=== PATIENT | female | born 1960 | race Caucasian/White ===

== ENCOUNTER 2020-08-04 08:04 | Emergency (ER) | payer MEDICAID, SELFPAY ==
[2020-08-04 08:05] VITALS: BP 141/91; PULSE 89; RESP 19; TEMP 36.4; O2SAT 100; BMI 29.0
--- NOTE | 2020-08-04 08:12 | HMH.EDFALL ---
ED Disposition Clinical Impression: Facial laceration Qualifiers: Encounter type: initial encounter Qualified Code(s): S01.81XA - Laceration without foreign body of other part of head, initial encounter Laceration, eyelid, right Qualifiers: Encounter type: initial encounter Qualified Code(s): S01.111A - Laceration without foreign body of right eyelid and periocular area, initial encounter Disposition: Home, Self-Care Condition on Discharge: Good Instructions: DI for Laceration Repair Referrals: Derrick Proctor MD [Staff Physician] - 3 days - Critical Care Critical Care Time: No Attestation: On , the high probability of a clinically significant, sudden or life threatening deterioration of the following system(s) required my full and direct attention, intervention and personal management. The time I documented below is in addition to time spent performing reported procedures but includes the following listed in this critical care notation. Medical Decision Making - Medical Records Medical records reviewed: Yes: I reviewed the patient's medical records. - Rashid Inquiry Pt receiving controlled substance: No Vital Signs: 08/04/20 08:05 Temperature 97.5 F L Temperature Source Oral Pulse Rate [Left Radial] 89 Respiratory Rate 19 Blood Pressure [Right Arm] 141/91 H Blood Pressure Mean [Right Arm] 107 Blood Pressure Source [Right Arm] Automatic Cuff Blood Pressure Position [Right Arm] Sitting 02 Sat by Pulse Oximetry 100 Oxygen Delivery Method Room Air Orders (Tests/Meds): ED MEDICATIONS Discontinued Medications Generic Name Dose Route Start Last Admin Trade Name Freq PRN Reason Stop Dose Admin Tetanus/Reduced Diphtheria/Acell Pertussis 0.5 ml 08/04/20 08:24 08/04/20 09:27 Adacel Tdap 0.5ml Syringe IM 08/04/20 08:25 0.5 ml .ONCE ONE Administration - CT Data CT Scan: Head, Other (face) Time Received: 09:[address] Reviewed: Yes: I have reviewed the patient's CT results Preliminary Findings: Normal/NAD Findings Narrative: scalp laceration Medical Decision Narrative: Patient with scalp laceration repaired by me in the emergency room. Tetanus updated. She has a negative CT head and face? No acute fractures or dislocations. She has no signs of retrobulbar hematoma, proptosis, hyphema, globe rupture. She does have a medial canthus laceration that I have discussed with local prefitter doors, Dr. Maxwell, who is happy to see her in the office to consider repair of this. She will be discharged to go directly there for further management. Fall HPI - General Stated Complaint: a/o fell on corner hit head Time Seen by Provider: 08/04/20 08:12 Mode of Arrival: Ambulatory Source of Information: Patient Limitations: No Limitations - History of Present Illness HPI Narrative: This is a 60-year-old female with no significant past medical history who presents to the emergency department for head injury that occurred just prior to arrival. Patient stood up quickly this morning and hit her head, face on a shelf. She has a large laceration with bleeding controlled on the forehead and also a laceration to the medial aspect of her eyelid at the medial canthus. She states the vision in her right eye is slightly blurry because of the bleeding from her eyelid laceration. She denies any loss of consciousness. No lateralizing motor or sensory changes. No neck, back, chest, abdominal pain. She does not take any blood thinners. - Related Data Home Medications Medication Instructions Recorded Confirmed Levothyroxine Sodium [Synthroid 112 mcg PO DAILY 08/04/20 08/04/20 112mcg (0.112mg) tablet] Allergies Allergy/AdvReac Type Severity Reaction Status Date / Time No Known Allergies Allergy Verified 08/04/20 08:25 [facility] History - Hepatitis A Screen Attestation statement:: This patient has been screened for Hepatitis A risk factors. I have reviewed the patient's past medi
--- NOTE | 2020-08-04 08:24 | CT_ITS ---
PROCEDURE: CT HEAD/BRAIN WO CON CLINICAL INDICATION: facial injury Head injury with headache/pain, contusion, abrasion or hematoma COMPARISON: No exams were available for comparison TECHNIQUE: Axial images obtained. All CT scans at the facility use one or more dose reduction, viz: automated exposure control, ma/kV adjustment per patient size (including targeted exams where dose is matched to indication, i.e. head), or iterative reconstruction technique. FINDINGS: No midline shift, mass effect, intracranial hemorrhage, hydrocephalus, or extra-axial fluid collection is evident. Laceration noted in the right frontal scalp region. No underlying calvarial fracture. The calvarium has an unremarkable appearance. No mastoid effusion. No sinus air-fluid level. IMPRESSION: Right frontal scalp laceration. No acute intracranial findings. Dictated by: Steven Son MD 08/04/2020 09:02 Steven Son MD in [place] 08/04/2020 09:02
--- NOTE | 2020-08-04 08:24 | CT_ITS ---
PROCEDURE: CT FACIAL BONES WO CON CLINICAL HISTORY: facial injury Laceration in the right periorbital region COMPARISON: No exams were available for comparison TECHNIQUE: Axial images obtained with sagittal and coronal reformats. All CT scans at the facility use one or more dose reduction, viz: automated exposure control, ma/kV adjustment per patient size (including targeted exams where dose is matched to indication, i.e. head), or iterative reconstruction technique. FINDINGS: Scalp laceration is present in the right supraorbital area. No acute fracture is evident.. The right orbit has an unremarkable appearance. No sinus air-fluid level. IMPRESSION: No acute fracture. Right frontal scalp laceration. Dictated by: Steven Son MD 08/04/2020 09:05 Steven Son MD in [facility] 08/04/2020 09:05
[2020-08-04 10:30] VITALS: BP 138/82; PULSE 78; RESP 18; TEMP 36.6; O2SAT 98
== END 2020-08-04 10:32 | disposition home or self-care (01) ==
PROVIDERS: Emergency Provider Emergency Medicine
DX: S01.81XA Laceration without foreign body of other part of head, initial encounter (principal); S01.111A Laceration without foreign body of right eyelid and periocular area, initial encounter; W01.10XA Fall on same level from slipping, tripping and stumbling with subsequent striking against unspecified object, initial encounter; Y92.019 Unspecified place in single-family (private) house as the place of occurrence of the external cause; Z23 Encounter for immunization
CPT/HCPCS: 12013; 70450; 70486; 90715; 99281

== ENCOUNTER 2020-08-11 10:08 | Emergency (ER) | payer MEDICAID, SELFPAY ==
--- NOTE | 2020-08-11 10:23 | PC.NURSE ---
Placed in traige for suture removal by nurse
[2020-08-11 10:25] VITALS: BP 0/0; PULSE 0; RESP 0; TEMP -17.7; TEMP 0
== END 2020-08-11 10:26 | disposition home or self-care (01) ==
LOC: ER 10:19
PROVIDERS: Emergency Provider Emergency Medicine
DX: S01.111D Laceration without foreign body of right eyelid and periocular area, subsequent encounter (principal)

== ENCOUNTER → 2020-12-21 13:17 | Outpatient (CLI) | payer OTHER, SELFPAY ==
--- NOTE | 2020-12-21 13:25 | CT_ITS ---
PROCEDURE: CT LUNG SCREENING CLINICAL INDICATION: H/O NICOTINE DEPENDENCE COMPARISON: CT CT CHEST LOW DOSE CANCER SCREENING from 12/27/2019 TECHNIQUE: The exam was performed on a GE Light Speed [address] scanner using 2.90 mGy CTDI. A low dose helical CT CHEST was performed on a multi-detector scanner. All CT scans at the facility use one or more dose reduction, viz: automated exposure control, ma/kV adjustment per patient size (including targeted exams where dose is matched to indication, i.e. head), or iterative reconstruction technique. The LDCT was performed in a facility that meets the criteria for the screening program. Data regarding this exam was submitted to ACR which is an approved registry. The order for this exam indicates that it came as a result of a lung cancer screening counseling shard decision-making visit that included all the elements required of such a visit including smoking cessation. The radiologist interpreting this exam meets the [facility] criteria for the LDCT lung cancer screening program. The exam is reported using the Lung-RADS classification scale and reported to the ACR registry. NOTE: This study was performed for the specific purposes of lung cancer screening and is not an alternative to diagnostic chest CT. RADIATION DOSE: CTDI vol(CT dose Index-volume) = 2.90mG DLP (Dose Length Product) = 116 mGcm FINDINGS: There scattered tiny nodular densities and several areas of mild architectural distortion consistent with smoking related change. There is a partly solid right middle lobe nodule visible on axial lung window images 46 through 48. There has been interval development of small satellite densities in increased prominence of the vertical component of this nodule since the prior study. May represent smoking related change, however it is consistent with a 4a nodule and 3 month low-dose chest CT without contrast is recommended. OTHER FINDINGS: Patient has had prior vertebroplasty at T12-L1 versus prominent calcification within the disc space. IMPRESSION: Lung-RADS Category 4A Suspicious Follow-up: 3 month low-dose chest CT Recommendations are per lung-RADS version 1.1 Dictated by: Mercedes Mcneil MD 12/24/2020 10:03 Mercedes Mcneil MD in [facility] 12/24/2020 10:03
== END ==
PROVIDERS: Visit Provider Internal Medicine Adolescent Medicine
DX: Z87.891 Personal history of nicotine dependence (principal); Z12.2 Encounter for screening for malignant neoplasm of respiratory organs
CPT/HCPCS: 71271

== ENCOUNTER → 2021-01-04 11:12 | Outpatient (CLI) | payer OTHER, SELFPAY ==
[2021-01-04 11:54] LABS: Basophils % 0.8 % (0.1-2.0); Eosinophils # 0.1 K/mm3 (0.0-0.4); Eosinophils % 1.5 % (0.1-12.0); Hematocrit 43.6 % (37.0-47.0); Hemoglobin 14.2 g/dL (12.2-16.2); Lymphocytes # 1.3 K/mm3 (0.7-4.5); Lymphocytes % 26.4 % (10-50); Mean Corpuscular HGB Conc 32.5 g/dL (31.8-35.4); Mean Corpuscular Hemoglobin 29.2 pg (27.0-31.2); Mean Corpuscular Volume 89.8 fl (81-99); Mean Platelet Volume 7.3 fl (7.4-10.4); Monocytes # 0.3 K/mm3 (0.1-1.0); Monocytes % 5.7 % (1.7-9.3); Neutrophils # 3.3 K/mm3 (1.8-7.8); Neutrophils % 65.6 % (37.0-80.0); Platelet Count 374 K/mm3 (142-424); Red Blood Count 4.86 M/mm3 (4.20-5.40); Red Cell Distribution Width 13.5 % (11.5-17.5); White Blood Count 5.1 K/mm3 (4.8-10.8)
[2021-01-04 12:36] LABS: Chloride 104 mmol/L (98-107); Potassium 5.1 mmoL/L (3.5-5.1); Sodium 138 mmol/L (136-145)
[2021-01-04 12:38] LABS: Alanine Aminotransferase 17 U/L (12-78); Anion Gap 11.1 mEq/L (5-15); Aspartate Amino Transferase 31 U/L (14-36); Blood Urea Nitrogen 17 mg/dl (7-17); Carbon Dioxide 28 mmol/L (22.0-30.0); Estimated Glomerular Filt Rate 57 ml/min (>60); GFR (African American) 69 ML/MIN (>60)
[2021-01-04 12:39] LABS: Albumin Level 4.9 g/dl (3.5-5.0); Albumin/Globulin Ratio 1.6 (1.1-1.8); Alkaline Phosphatase 49 U/L (38-126); Bilirubin,Total 0.6 mg/dl (0.2-1.3); Chol/HDL Ratio 3.5 (1-3.5); Cholesterol 237 mg/dl (140-200); Glucose 95 mg/dl (74-100); HDL Cholesterol 67 mg/dl (40-60); Total Protein,Serum 7.9 g/dl (6.3-8.2); Triglycerides 110 mg/dl (30-150); VLDL Cholesterol 22 mg/dL (0-40)
[2021-01-04 12:50] LABS: Direct LDL Cholesterol 133.85 mg/dL (100-129)
[2021-01-04 12:59] LABS: Triiodothryronine (T3) Uptake 29 % (23.5-40.5)
[2021-01-04 13:00] LABS: Free Thyroxine Index 3.7 ug/dL (5.93-13.13); T4 (Thyroxine) 12.7 ug/dl (5.53-11.0)
[2021-01-04 13:13] LABS: Thyroid Stimulating Hormone 2.08 uIU/mL (0.465-4.68)
[2021-01-06 14:52] LABS: AFP, Tumor Marker 3.6 ng/mL (0.0-8.3)
== END ==
PROVIDERS: Visit Provider Internal Medicine Adolescent Medicine
DX: Z00.00 Encounter for general adult medical examination without abnormal findings (principal); E03.9 Hypothyroidism, unspecified; Z86.19 Personal history of other infectious and parasitic diseases
CPT/HCPCS: 36415; 80053; 80061; 82105; 84436; 84443; 84479; 85025

== ENCOUNTER → 2021-01-11 12:42 | Outpatient (CLI) | payer OTHER, SELFPAY ==
--- NOTE | 2021-01-11 12:45 | FL_ITS ---
PROCEDURE: FL BARIUM SWALLOW MODIFIED CLINICAL INDICATION: DYSPHAGIA COMPARISON: No exams were available for comparison TECHNIQUE: Patient administered varying consistencies of barium contrast, while viewed in lateral position under real-time fluoroscopy with cine recording. FLUOROSCOPY TIME: The study was performed in conjunction with speech pathologist. Please see that report & recommendations. FINDINGS: Patient was given varying consistencies of barium.. No evidence to be penetration or tracheal aspiration. IMPRESSION: Unremarkable modified barium swallow. Please see speech pathologist report and recommendations. Dictated by: Steven Son MD 02/27/2021 19:02 Steven Son MD in [facility] 02/27/2021 19:02
--- NOTE | 2021-01-11 12:46 | CT_ITS ---
PROCEDURE: CT CHEST WO/W CON CLINCAL INDICATION: PULLMONARY NODULE COMPARISON: CT CT THORAX W/O CONTRAST from 12/20/[address] CHEST LOW DOSE CANCER SCREENING from 12/27/[address] LUNG SCREENING from 12/21/2020 TECHNIQUE: IV Contrast: 75ml Isovue 370 Axial images obtained with sagittal and coronal reformats. All CT scans at the facility use one or more dose reduction, viz: automated exposure control, ma/kV adjustment per patient size (including targeted exams where dose is matched to indication, i.e. head), or iterative reconstruction technique. FINDINGS: HEART AND MEDIASTINAL STRUCTURES: Unremarkable. LUNGS AND PLEURAL SPACES: COPD changes. There is a chronic parenchymal opacity in the right middle lobe laterally which is not significantly changed. Main component at this area measures approximately 6 3 mm with a smaller lateral area of nodularity 3 mm and 2 mm. 5 mm noncalcified nodules present in the right lower lobe posteriorly unchanged. 5 mm right upper lobe nodule 20 is unchanged. There is a 6 x 3 mm nodule in the left lower lobe medially which is stable image 70. No effusions or infiltrates. BONY STRUCTURES: There is a small sclerotic focus in the right 8th rib laterally and may be due to a bone island.. Calcification noted within the disc centrally at T12-L1. UPPER ABDOMEN: Unremarkable. ADDITIONAL FINDINGS: No other significant abnormalities. IMPRESSION: Overall stable CT appearance of the chest. Multiple small pulmonary nodules are present. The nodular density in the right middle lobe is unchanged. Six-month follow-up recommended. Dictated by: Steven Son MD 01/13/2021 12:09 Steven Son MD in [place] 01/13/2021 12:09
--- NOTE | 2021-01-11 13:44 | HMH.SLMBS2 ---
Speech & Language Evaluation Speech/Language Mod Barium Swallow Start: 01/11/21 13:37 Freq: once Status: Complete Protocol: Document 01/11/21 13:37 LISBET (Rec: 01/11/21 13:44 LISBET [id number]) General Information General Current Food Consistancy Regular,Thin Liquids Dentition Good Dentition Oxygen Status Room Air Facial Symmetry Symmetrical Patient Orientation Person,Place,Time,Situation Ability to Follow Directions Excellent Communication Ability No Impairment MBS Recommendations Diet Dietary Recommendations Regular,Thin Liquids Mod Barium Swallow Impressions Summary and Impressions Oral Phase Impression No Impairment (WFL) Oral Phase Summary Ms. Benitez was given the following consistencies: thins via straw and open cup, nectar, honey, pudding, mechanical soft, regular, mixed, and pill with thin wash . No impairments noted in the oral phase of swallowing. Pharyngeal Phase Impression No Impairment (WFL) Pharyngeal Phase Summary No overt signs/symptoms of dysphagia noted. She did report that when she drinks her protein shakes or a milkshake consistency that is extremely cold, she does have difficulty with pooling in the back of her throat. Speech/Language MBS Assessment/Goals/Plan Assessment Date of Evaluation: 01/11/21 Evaluation Type Initial Certification Assessment/Problems Dysphagia Does Patient Qualify for Service No Qualify/Failure Comment No s/s of dysphagia noted in the evaluation Plan Pt/Guardian verbally ack understanding Yes of dx/prognosis/goals G -code Required No Mod Barium Swallow Setup Exam Setup Radiologist Steven Son Level of Consciousness Awake,Alert,Appropriate, Follows Commands Position (degrees) 90 Mod Barium Swallow-Lat View Textures Lateral View Food Presentation Thin Liquid via Cup,Thin Liquid via Straw,[place] Liquid via Cup,Honey Liquid via Cup, Ground Food- Regular,Barium Tablet,Regular Food,Pudding, Mixed Oral Phase Labial Closure No Impairment (WFL) Bolus Formation Pooling L/R No Impairment (WFL) Bolus Formation under T
== END ==
PROVIDERS: PCP Nurse Practitioner Family; Visit Provider Internal Medicine Adolescent Medicine
DX: R13.14 Dysphagia, pharyngoesophageal phase (principal); R91.1 Solitary pulmonary nodule
CPT/HCPCS: 70371; 71270; 92611; Q9967

== ENCOUNTER → 2021-04-14 13:16 | Outpatient (CLI) | payer OTHER, SELFPAY ==
--- NOTE | 2021-04-14 13:24 | XR_ITS ---
PROCEDURE: XR FOOT LT MIN 3V CLINICAL INDICATION: LT FOOT PAIN COMPARISON: No exams were available for comparison FINDINGS: No fracture or dislocation. No lytic or blastic change. There is normal mineralization. Minimal osteoarthritic change 1st MTP joint Other findings:None. IMPRESSION: Minimal osteoarthritic change 1st MTP joint otherwise negative Dictated by: Steven Son MD 04/14/2021 13:41 Steven Son MD in [place] 04/14/2021 13:41
[2021-04-14 13:46] LABS: Basophils # 0.1 K/mm3 (0-0.2); Basophils % 0.7 % (0.1-2.0); Eosinophils # 0.1 K/mm3 (0.0-0.4); Eosinophils % 1.7 % (0.1-12.0); Hematocrit 42.1 % (37.0-47.0); Lymphocytes # 1.5 K/mm3 (0.7-4.5); Lymphocytes % 22.9 % (10-50); Mean Corpuscular HGB Conc 33.3 g/dL (31.8-35.4); Mean Corpuscular Hemoglobin 29.5 pg (27.0-31.2); Mean Corpuscular Volume 88.7 fl (81-99); Monocytes # 0.5 K/mm3 (0.1-1.0); Monocytes % 7.8 % (1.7-9.3); Neutrophils # 4.4 K/mm3 (1.8-7.8); Neutrophils % 66.9 % (37.0-80.0); Platelet Count 353 K/mm3 (142-424); Red Blood Count 4.74 M/mm3 (4.20-5.40); Red Cell Distribution Width 13.4 % (11.5-17.5); White Blood Count 6.6 K/mm3 (4.8-10.8)
[2021-04-14 14:17] LABS: Erythrocyte Sedimentation Rate 16 mm/hr (0-30)
[2021-04-14 14:18] LABS: Alanine Aminotransferase 16 U/L (12-78); Albumin Level 4.5 g/dl (3.5-5.0); Albumin/Globulin Ratio 1.8 (1.1-1.8); Alkaline Phosphatase 43 U/L (38-126); Anion Gap 9.2 mEq/L (5-15); Aspartate Amino Transferase 27 U/L (14-36); Bilirubin,Total 0.5 mg/dl (0.2-1.3); Blood Urea Nitrogen 15 mg/dl (7-17); Calcium 9.5 mg/dl (8.4-10.2); Carbon Dioxide 30 mmol/L (22.0-30.0); Chloride 103 mmol/L (98-107); Estimated Glomerular Filt Rate 57 ml/min (>60); GFR (African American) 69 ML/MIN (>60); Globulin 2.5 g/dL (1.3-3.2); Glucose 86 mg/dl (74-100); Potassium 5.2 mmoL/L (3.5-5.1); Sodium 137 mmol/L (136-145)
== END ==
PROVIDERS: Visit Provider Internal Medicine Adolescent Medicine
DX: M79.672 Pain in left foot (principal)
CPT/HCPCS: 36415; 73630; 80053; 85025; 85651

== ENCOUNTER → 2021-04-28 07:40 | Outpatient (CLI) | payer OTHER, SELFPAY ==
--- NOTE | 2021-04-28 07:42 | MM_ITS ---
PROCEDURE INFORMATION: Exam: MG Screening 3D Mammography Exam date and time: 04/28/2021 7:42 AM Age: 61 years old Clinical indication: Encounter for screening mammogram for malignant neoplasm of breast TECHNIQUE: Imaging protocol: Screening tomosynthesis and 2D mammography including computer-aided detection (CAD) when performed. COMPARISON: MG MM MAMMO SCREENING W/ TOMOSYNTHESIS BILATERAL 03/27/2020 8:52 AM FINDINGS: MAMMOGRAPHY: Breast composition: The breast tissue is composed of scattered areas of fibroglandular density. Mass: None. Architectural distortion: None. Calcifications: No suspicious calcifications. Asymmetric density: None. Skin thickening: None. Axillary adenopathy: None. IMPRESSION: No mammographic evidence of malignancy. Annual screening is recommended unless otherwise clinically indicated. ASSESSMENT: BI-RADS Category 1: Negative
== END ==
PROVIDERS: PCP Internal Medicine Adolescent Medicine; Visit Provider Internal Medicine Adolescent Medicine
DX: Z12.31 Encounter for screening mammogram for malignant neoplasm of breast (principal)
CPT/HCPCS: 77063; 77067

== ENCOUNTER → 2021-06-30 10:11 | Outpatient (CLI) | payer OTHER, SELFPAY | PROVIDERS: Visit Provider Internal Medicine Gastroenterology | DX: Z01.812 Encounter for preprocedural laboratory examination (principal); Z20.822 Contact with and (suspected) exposure to COVID-19; Z13.810 Encounter for screening for upper gastrointestinal disorder | CPT/HCPCS: U0003 ==

== ENCOUNTER 2021-07-02 08:00 | Day surgery (SDC) | payer OTHER, SELFPAY ==
[2021-06-24 15:13] VITALS: BMI 28.1
[2021-07-02] VITALS (7 sets, daily range): BP systolic 92–114; BP diastolic 62–77; PULSE 57–69; RESP 18–20; TEMP 36.1–36.2; O2SAT 96–99
--- NOTE | 2021-07-02 08:37 | P.PN_ITS ---
[facility] Anesthesia Checklist - Patient Identification Patient Identification: Arm Band - Structural Data Admitted From: Home Planned Operative Procedure/s: EGD Consent for Planned Operative Procedure(s) Verified: Yes - NPO Status Verified Time NPO: 00:00 - Airway Assessment C-Spine Mobility Assessed: Yes TMJ Mobility Assessed: Yes Dentition: Good Dentition - Neurological Assessment Level of Consciousness: Awake Hx Seizures: No Numbness or tingling in extremities: No - Anesthesia Plan Anesthesia Risk discussed: Yes Anesthesia Plan: Verified ASA Class: II Anesthesia Type: MAC [facility] History I have reviewed the patient's past medical history: Yes Medical History: Reports:: Hepatitis (Hep C recovered) Denies:: Cancer, Diabetes Mellitus Type 1, Diabetes Mellitus Type 2, Internal Pacemaker, MRSA, Seizures *Have you ever received a pneumonia vaccine?: No *Have you received a flu vaccine this season?: Yes Other Medical History: Reports: Hypothyroidism Anesthesia experience/problems:: None Laterality Cases: Bilateral: Carpal Tunnel Release Other Surgeries: No: Pacemaker Amputation: No Fractures: No - *Social History Last grade of school completed: Advanced degree Smoking Status: Never smoker Alcohol Intake: never Alcohol Intake Frequency:: holidays/special occasions only Substance Use Type: denies use *Occupational Status:: employed *Travel in the last 8 weeks: None Family Hx:: Unable to obtain
--- NOTE | 2021-07-02 09:32 | HMH.PROC ---
[facility] Procedure Note Procedure Note:: Upper Endoscopy Procedure Report: Esophagogastroduodenoscopy with cold biopsies and TTS balloon dilation Endoscopost: Julio Cesar Rodriguez II, MD Referring Physician: Derrick Proctor M.D. Date of Procedure: July 02, 2021 Equipment: Olympus GIF 190 standard upper endoscope Sedation: MAC sedation Indications: Mrs. Benitez is a 61-year-old female with intermittent dysphagia in the retrohyoid region to cold liquids. This can primarily occur with frozen smoothies. She does have occasional globus sensation. She reports some bloating and occasional early satiety. She has very rare heartburn and nausea. She has occasional epigastric discomfort/dyspepsia. She does state that her sister had tongue cancer and she did not want to explore this particular symptom. She reports no hoarseness or frequent clearance of the throat. This is her first upper endoscopy. She did have a normal modified barium swallow. She does have some pulmonary nodules on CAT scan that are very stable. Her lab work showed normal hemoglobin 14.2 and hematocrit 43.6. She had normal liver function. Procedure: Prior to the procedure, a history and physical exam was performed, and patient's medications and allergies were reviewed. The risks, benefits and alternatives of the sedation and procedure were discussed with the patient. All questions were answered and informed consent was obtained. The patient was brought to the procedure room. Patient identification and proposed procedure were verified by the physician and the nurse. The patient was placed in a left lateral decubitus position and the scope was passed under direct vision. Throughout the procedure, the patient's blood pressure, pulse, and oxygen saturations were monitored continuously. The upper GI endoscopy was accomplished without difficulty. The patient tolerated the procedure well. Findings: The scope was passed directly into the upper esophagus and advanced to the third portion of the duodenum. The post bulbar duodenum and duodenal bulb were normal with normal mucosa and conniventes. The scope was withdrawn through a normal duodenal bulb and pylorus into the stomach. There was some bile reflux with mild linear reactive gastropathy of the antrum. The remainder of the body and fundus of the stomach were grossly normal. Upon retroflexion there was no hiatal hernia. 2 biopsies were taken in the antrum and along the lesser curvature for histology to rule out gastritis and/or H pylori. The scope was then withdrawn into the esophagus. There was no evidence of reflux esophagitis or Carranza's. There was a serrated Z-line. There were tertiary contractions and evidence of mild esophageal dysmotility. The entire esophagus was dilated to 60 Hungarian/20 mm with a TTS hydrostatic balloon. There was some resistance at the cricopharyngeus (i.e. cricopharyngeal spasm). The remainder of the esophageal mucosa was normal. Impression: 1. Cricopharyngeal spasm status post dilation to 20 mm 2. Mild esophageal dysmotility with nonerosive GERD 3. Bile reflux with very mild linear reactive gastropathy of antrum Plan: I will follow-up the biopsies. We will discuss treatment options (i.e. Iberogast or fiber bowel regimen).
== END 2021-07-02 10:30 | disposition home or self-care (01) ==
LOC: OUTP 08:02
PROVIDERS: PCP Internal Medicine Adolescent Medicine; Visit Provider Internal Medicine Gastroenterology
PROC: 0DJ08ZZ Inspection of Upper Intestinal Tract, Via Natural or Artificial Opening Endoscopic (ICD-10-PCS; CPT 43235; principal; 2021-07-02 09:00)
DX: J39.2 Other diseases of pharynx (principal); K22.4 Dyskinesia of esophagus; K21.9 Gastro-esophageal reflux disease without esophagitis; K31.9 Disease of stomach and duodenum, unspecified; Z80.8 Family history of malignant neoplasm of other organs or systems; E03.9 Hypothyroidism, unspecified; Z79.890 Hormone replacement therapy; Z79.899 Other long term (current) drug therapy; B19.20 Unspecified viral hepatitis C without hepatic coma
CPT/HCPCS: 43239; 43249; C1726

== ENCOUNTER → 2021-07-14 09:17 | Outpatient (CLI) | payer OTHER, SELFPAY ==
[2021-07-14 09:52] LABS: Basophils # 0.1 K/mm3 (0-0.2); Basophils % 1.1 % (0.1-2.0); Eosinophils # 0.1 K/mm3 (0.0-0.4); Eosinophils % 1.8 % (0.1-12.0); Hematocrit 45.2 % (37.0-47.0); Hemoglobin 14.4 g/dL (12.2-16.2); Lymphocytes # 1.4 K/mm3 (0.7-4.5); Mean Corpuscular HGB Conc 31.9 g/dL (31.8-35.4); Mean Corpuscular Hemoglobin 29.6 pg (27.0-31.2); Mean Corpuscular Volume 92.8 fl (81-99); Mean Platelet Volume 7.4 fl (7.4-10.4); Monocytes # 0.4 K/mm3 (0.1-1.0); Neutrophils # 3.3 K/mm3 (1.8-7.8); Neutrophils % 64.1 % (37.0-80.0); Platelet Count 362 K/mm3 (142-424); Red Blood Count 4.87 M/mm3 (4.20-5.40); Red Cell Distribution Width 14.1 % (11.5-17.5); White Blood Count 5.2 K/mm3 (4.8-10.8)
[2021-07-14 10:25] LABS: Chloride 102 mmol/L (98-107)
[2021-07-14 10:26] LABS: Potassium 4.8 mmoL/L (3.5-5.1); Sodium 137 mmol/L (136-145)
[2021-07-14 10:28] LABS: Alanine Aminotransferase 21 U/L (12-78); Anion Gap 13.8 mEq/L (5-15); Aspartate Amino Transferase 30 U/L (14-36); Blood Urea Nitrogen 14 mg/dl (7-17); Carbon Dioxide 26 mmol/L (22.0-30.0); Estimated Glomerular Filt Rate 57 ml/min (>60); GFR (African American) 68 ML/MIN (>60)
[2021-07-14 10:29] LABS: Albumin Level 4.4 g/dl (3.5-5.0); Albumin/Globulin Ratio 1.7 (1.1-1.8); Alkaline Phosphatase 49 U/L (38-126); Bilirubin,Total 0.3 mg/dl (0.2-1.3); Calcium 9.6 mg/dl (8.4-10.2); Chol/HDL Ratio 2.9 (1-3.5); Cholesterol 221 mg/dl (140-200); Globulin 2.6 g/dL (1.3-3.2); Glucose 90 mg/dl (74-100); HDL Cholesterol 77 mg/dl (40-60); Triglycerides 73 mg/dl (30-150); VLDL Cholesterol 15 mg/dL (0-40)
[2021-07-14 10:35] LABS: C-Reactive Protein 4.6 mg/L (0-4)
[2021-07-14 10:40] LABS: Direct LDL Cholesterol 117.33 mg/dL (100-129)
[2021-07-14 10:46] LABS: Triiodothryronine (T3) Uptake 30 % (23.5-40.5)
[2021-07-14 10:47] LABS: Free Thyroxine Index 3.8 ug/dL (5.93-13.13); T4 (Thyroxine) 12.6 ug/dl (5.53-11.0)
[2021-07-14 11:00] LABS: Thyroid Stimulating Hormone 1.18 uIU/mL (0.465-4.68)
[2021-07-14 11:21] LABS: Erythrocyte Sedimentation Rate 25 mm/hr (0-30)
[2021-07-15 13:42] LABS: Anti-Centromere B Antibodies 0.2 AI (0.0-0.9); Anti-DNA (DS) Ab Qn <1 IU/mL (0-9); Anti-Jo-1 <0.2 AI (0.0-0.9); Anti-Smith Antibody <0.2 AI (0.0-0.9); Antichromatin Antibodies <0.2 AI (0.0-0.9); Antiscleroderma-70 Antibodies <0.2 AI (0.0-0.9); RNP Antibodies <0.2 AI (0.0-0.9); Sjogren's Anti-SS-A <0.2 AI (0.0-0.9); Sjogren's Anti-SS-B <0.2 AI (0.0-0.9)
[2021-07-16 00:07] LABS: Anti-Cyclic Citrullinated Pept 5 units (0-19)
== END ==
PROVIDERS: Visit Provider Internal Medicine Adolescent Medicine
DX: E03.9 Hypothyroidism, unspecified (principal); M19.041 Primary osteoarthritis, right hand; M19.042 Primary osteoarthritis, left hand; L30.8 Other specified dermatitis
CPT/HCPCS: 36415; 80053; 80061; 84436; 84443; 84479; 85025; 85651; 86140; 86200; 86225; 86235

== ENCOUNTER → 2021-09-14 08:01 | Outpatient (CLI) | payer OTHER, SELFPAY | PROVIDERS: Visit Provider Surgery | DX: Z01.812 Encounter for preprocedural laboratory examination (principal); Z11.52 Encounter for screening for COVID-19; Z12.11 Encounter for screening for malignant neoplasm of colon | CPT/HCPCS: 36415; C9803; U0003; U0005 ==

== ENCOUNTER 2021-09-16 06:36 | Day surgery (SDC) | payer OTHER, SELFPAY ==
[2021-09-13 13:31] VITALS: BMI 28.2
[2021-09-16 06:59] VITALS: BP 125/63; PULSE 70; RESP 18; TEMP 36.2; O2SAT 100
[2021-09-16 07:34] VITALS: O2SAT 97
--- NOTE | 2021-09-16 08:17 | HMH.SCOPE ---
- Procedure: Date: 09/16/21 Patient Date of :: 1960 Procedure Performed:: Colonoscopy with polypectomy Indications:: History of colon polyps Performing Provider:: Krishna Cronin MD Referring Provider:: . Sedation:: Monitored anesthesia care Procedure:: After informed consent was obtained the patient was taken to the endoscopy suite. Sedation ensued after the patient was transferred to the left lateral decubitus position. Pulse, blood pressure, and oxygen saturation were monitored throughout the procedure. Digital rectal exam revealed no significant abnormality. The colonoscope was placed in position. The entire colon was evaluated. The colonoscope was carefully removed and the patient was transferred to recovery in stable condition. Please see findings and specimens below for detail. Findings:: Bowel preparation moderate to poor Complex polyps (see specimens) Specimens:: Adjacent sessile polyps at 40 cm (cold snare) Large lobulated pedunculated polyp at 12 cm and adjacent polyp (cold snare) Recommendations:: Timing of repeat colonoscopy is pending pathology but will likely be between 1-2 years secondary to limited bowel preparation and size/nature of polyps. Complications:: No immediate Estimated blood obtained (mL): 1
[2021-09-16 08:20] VITALS: BP 82/51; PULSE 69; RESP 16; TEMP 36.1; O2SAT 98
[2021-09-16 08:30] VITALS: BP 96/56; PULSE 65; RESP 16; O2SAT 100
[2021-09-16 08:40] VITALS: BP 112/70; PULSE 65; RESP 16; O2SAT 100
[2021-09-16 08:50] VITALS: BP 110/58; PULSE 68; RESP 16; O2SAT 100
--- NOTE | 2021-09-16 10:27 | P.PN_ITS ---
[facility] Anesthesia Checklist - Patient Identification Patient Identification: Arm Band, Verbal (Name & ) - Structural Data Admitted From: Home Planned Operative Procedure/s: Colonoscopy Consent for Planned Operative Procedure(s) Verified: Yes Verified Documents: Surgical Consent - NPO Status Verified Time NPO: 00:00 - Cardiovascular Assessment Heart Sounds: S1 & S2 - Airway Assessment C-Spine Mobility Assessed: Yes TMJ Mobility Assessed: Yes Dentition: Good Dentition - Neurological Assessment Level of Consciousness: Awake, Alert, Appropriate - Anesthesia Plan Anesthesia Risk discussed: Yes ASA Class: II Anesthesia Type: General [facility] History I have reviewed the patient's past medical history: Yes Medical History: Reports:: Hepatitis (Hep C recovered) Denies:: Cancer, Diabetes Mellitus Type 1, Diabetes Mellitus Type 2, Internal Pacemaker, MRSA, Seizures *Have you ever received a pneumonia vaccine?: No *Have you received a flu vaccine this season?: Yes Other Medical History: Reports: Hypothyroidism Anesthesia experience/problems:: none Laterality Cases: Bilateral: Carpal Tunnel Release Other Surgeries: No: Pacemaker Amputation: No Fractures: No - *Social History Last grade of school completed: Advanced degree Smoking Status: Never smoker Alcohol Intake: current Alcohol Intake Frequency:: holidays/special occasions only Substance Use Type: denies use *Occupational Status:: employed Housing: house Household Members: family *Travel in the last 8 weeks: None Family Hx:: Coronary Artery Disease, Diabetes, Heart Attack, Hyperlipidemia, Hypertension
== END 2021-09-16 08:50 | disposition home or self-care (01) ==
PROVIDERS: Surgery; PCP Internal Medicine Adolescent Medicine; Visit Provider Surgery
PROC: 0DJD8ZZ Inspection of Lower Intestinal Tract, Via Natural or Artificial Opening Endoscopic (ICD-10-PCS; principal; 2021-09-16 07:30)
DX: Z12.11 Encounter for screening for malignant neoplasm of colon (principal); Z86.010 Personal history of colon polyps; K63.5 Polyp of colon; E03.9 Hypothyroidism, unspecified; Z87.39 Personal history of other diseases of the musculoskeletal system and connective tissue; Z86.19 Personal history of other infectious and parasitic diseases; Z83.3 Family history of diabetes mellitus; Z82.49 Family history of ischemic heart disease and other diseases of the circulatory system; Z83.438 Family history of other disorder of lipoprotein metabolism and other lipidemia; Z82.3 Family history of stroke
CPT/HCPCS: 45385

== ENCOUNTER → 2021-10-04 07:29 | Outpatient (CLI) | payer OTHER, SELFPAY ==
[2021-10-04 08:45] LABS: Blood Urea Nitrogen 24 mg/dl (7-17); Estimated Glomerular Filt Rate 51 ml/min (>60); GFR (African American) 61 ML/MIN (>60)
== END ==
PROVIDERS: Visit Provider Internal Medicine Adolescent Medicine
DX: R91.1 Solitary pulmonary nodule (principal)
CPT/HCPCS: 36415; 82565; 84520

== ENCOUNTER → 2021-10-06 12:48 | Outpatient (CLI) | payer OTHER, SELFPAY ==
--- NOTE | 2021-10-06 12:54 | CT_ITS ---
PROCEDURE: CT CHEST W CON CLINCAL INDICATION: PULMONARY NODULE COMPARISON: CT CT CHEST WO/W CON from 01/11/2021 TECHNIQUE: IV Contrast: 75ml Isovue 370 Axial images obtained with sagittal and coronal reformats. All CT scans at the facility use one or more dose reduction, viz: automated exposure control, ma/kV adjustment per patient size (including targeted exams where dose is matched to indication, i.e. head), or iterative reconstruction technique. FINDINGS: HEART AND MEDIASTINAL STRUCTURES: Unremarkable. LUNGS AND PLEURAL SPACES: COPD changes with scattered small nodular opacities not significantly changed. No new nodules apparent. No effusions or infiltrates. BONY STRUCTURES: No change small sclerotic focus right 8th rib laterally and central disc calcification at T12-L1. UPPER ABDOMEN: 4 mm hypodensity right hepatic lobe segment 7 not significantly changed. ADDITIONAL FINDINGS: No other significant abnormalities. IMPRESSION: Stable CT appearance of the chest. No change small pulmonary nodules. Annual follow-up suggested. Dictated by: Steven Son MD 10/07/2021 10:12 Steven Son MD in [place] 10/07/2021 10:12
== END ==
PROVIDERS: PCP Internal Medicine Adolescent Medicine; Visit Provider Internal Medicine Adolescent Medicine
DX: R91.1 Solitary pulmonary nodule (principal)
CPT/HCPCS: 71260; Q9967

== ENCOUNTER → 2021-10-13 13:54 | Outpatient (CLI) | payer OTHER, SELFPAY ==
[2021-10-13 15:11] LABS: Anion Gap 7.3 mEq/L (5-15); Blood Urea Nitrogen 15 mg/dl (7-17); Calcium 9.3 mg/dl (8.4-10.2); Carbon Dioxide 31 mmol/L (22.0-30.0); Chloride 98 mmol/L (98-107); Estimated Glomerular Filt Rate 64 ml/min (>60); GFR (African American) 77 ML/MIN (>60); Glucose 102 mg/dl (74-100); Potassium 4.3 mmoL/L (3.5-5.1); Sodium 132 mmol/L (136-145)
== END ==
PROVIDERS: Visit Provider Internal Medicine Adolescent Medicine
DX: R79.89 Other specified abnormal findings of blood chemistry (principal)
CPT/HCPCS: 36415; 80048

== ENCOUNTER → 2022-01-24 09:04 | Outpatient (CLI) | payer OTHER, SELFPAY ==
[2022-01-24 09:48] LABS: Anion Gap 9.4 mEq/L (5-15); Blood Urea Nitrogen 13 mg/dl (7-17); Calcium 8.6 mg/dl (8.4-10.2); Carbon Dioxide 29 mmol/L (22.0-30.0); Chloride 101 mmol/L (98-107); Estimated Glomerular Filt Rate 73 ml/min (>60); GFR (African American) 89 ML/MIN (>60); Glucose 102 mg/dl (74-100); Potassium 4.4 mmoL/L (3.5-5.1); Sodium 135 mmol/L (136-145)
[2022-01-24 10:03] LABS: Hemoglobin A1C 5.3 % (4.0-6.0)
== END ==
PROVIDERS: Visit Provider Internal Medicine Adolescent Medicine
DX: R79.89 Other specified abnormal findings of blood chemistry (principal); E13.69 Other specified diabetes mellitus with other specified complication
CPT/HCPCS: 36415; 80048; 83036

== ENCOUNTER → 2022-04-26 07:45 | Outpatient (CLI) | payer OTHER, SELFPAY | PROVIDERS: PCP Internal Medicine Adolescent Medicine; Visit Provider Internal Medicine Gastroenterology | DX: Z20.822 Contact with and (suspected) exposure to COVID-19 (principal) | CPT/HCPCS: C9803; U0003; U0005 ==

== ENCOUNTER → 2022-05-10 07:57 | Outpatient (CLI) | payer OTHER, SELFPAY ==
--- NOTE | 2022-05-10 07:59 | MM_ITS ---
PROCEDURE INFORMATION: Exam: MG Bilateral Screening 3D Mammography Exam date and time: 05/10/2022 7:59 AM Age: 62 years old Clinical indication: Screening examination TECHNIQUE: Imaging protocol: Bilateral Screening tomosynthesis and 2D mammography including computer-aided detection (CAD) when performed. COMPARISON: 1. MG MM DIG SCREENING MAMM BI W/CAD 04/28/2021 8:02 AM 2. MG MM MAMMO SCREENING W/ TOMOSYNTHESIS BILATERAL 03/27/2020 8:52 AM FINDINGS: MAMMOGRAPHY: Breast composition: There are scattered areas of fibroglandular density. Mass: No suspicious masses. Architectural distortion: No suspicious distortion. Calcifications: No suspicious calcifications. Asymmetric density: None. Skin thickening: None. Axillary adenopathy: None. IMPRESSION: No mammographic evidence of malignancy. Annual screening is recommended unless otherwise clinically indicated. ASSESSMENT: BI-RADS Category 1: Negative
== END ==
PROVIDERS: PCP Internal Medicine Adolescent Medicine; Visit Provider Internal Medicine Adolescent Medicine
DX: Z12.31 Encounter for screening mammogram for malignant neoplasm of breast (principal)
CPT/HCPCS: 77063; 77067

== ENCOUNTER → 2022-06-27 10:09 | Outpatient (CLI) | payer OTHER, SELFPAY | PROVIDERS: PCP Internal Medicine Adolescent Medicine; Visit Provider Internal Medicine | DX: Z01.812 Encounter for preprocedural laboratory examination (principal); Z20.822 Contact with and (suspected) exposure to COVID-19; Z12.11 Encounter for screening for malignant neoplasm of colon; Z86.010 Personal history of colon polyps | CPT/HCPCS: C9803; U0003; U0005 ==

== ENCOUNTER 2022-06-29 08:50 | Day surgery (SDC) | payer OTHER, SELFPAY ==
[2022-04-26 10:25] VITALS: BMI 28.5
--- NOTE | 2022-04-27 10:05 | SUR.PREOP ---
spoke with pt regarding need to reschedule colonoscopy due to emergency cancellation per Dr Llanes. Pt was upset her procedure wouldn't happen tomorrow, stating she had already taken off work and mixed her prep. I apologized for the inconvenience. Pt wanted to know if someone else could scope her tomorrow. I explained we did not have another physician here tomorrow to do that but that she could reach out to the [facility] if she wanted to speak with them. [facility] phone number provided to pt.
[2022-06-27 09:34] VITALS: BMI 29.0
[2022-06-29] VITALS (7 sets, daily range): BP systolic 110–147; BP diastolic 67–77; PULSE 60–73; RESP 16–18; TEMP 36.1–36.4; O2SAT 95–100
--- NOTE | 2022-06-29 09:22 | HMH.SCOPE ---
Procedure: Date: 06/29/22 Patient Date of :: 1960 Procedure Performed:: Colonoscopy Indications:: The patient is a 62 year old who is here for surveillance colonoscopy for a history of polyps Performing Provider:: Charles New MD Referring Provider:: Derrick Proctor MD Sedation:: See RN notes Procedure:: After placing the patient in the left lateral decubitus position, the colonoscopy was gently inserted into the rectum and under direct visualization advanced to the cecum which was identified by transillumination in the right lower quadrant, identification of the ileocecal valve, appendiceal orifice, and cecal strap. Color, texture, mucosa, and anatomy of the colon were carefully examined with the scope. Findings:: Anal canal: normal Rectum: internal hemorrhoids Sigmoid colon: Diverticulosis Descending colon: Sessile polyp 5 mm in size. Removed with cold snare polypecotmy Splenic flexure: normal Transverse colon: normal without polyps or inflammatory changes Hepatic flexure: Sessile polyp 3 mm in size. Removed with cold forceps Ascending colon: normal Cecum: normal Terminal ileum: not visualized Impression: Polyp of hepatic flexure Polyp of descending colon Sigmoid diverticulosis Recommendations:: Await pathology results higher fiber diet Repeat colonoscopy in 5 years Complications:: none Estimated blood obtained (mL): 0
--- NOTE | 2022-06-29 09:23 | P.PN_ITS ---
PFSH PFSH Social History Smoking Status: Former smoker pack-years: 30 second hand exposure: No alcohol intake: current substance use type: denies use current occupational status: employed household members: family housing: house current occupation: customer success advocate current occupational exposures/hazards: No caffeine: Yes
== END 2022-06-29 10:17 | disposition home or self-care (01) ==
PROVIDERS: PCP Nurse Practitioner Family; Visit Provider Internal Medicine
PROC: 0DJD8ZZ Inspection of Lower Intestinal Tract, Via Natural or Artificial Opening Endoscopic (ICD-10-PCS; CPT 45378; principal; 2022-06-29 09:00)
DX: Z12.11 Encounter for screening for malignant neoplasm of colon (principal); K63.5 Polyp of colon; Z86.010 Personal history of colon polyps; Z79.899 Other long term (current) drug therapy
CPT/HCPCS: 45380; 45385

== ENCOUNTER 2025-03-15 17:12 | Emergency (ER) | payer OTHER, SELFPAY ==
[2025-03-15 17:25] VITALS: BP 151/69; PULSE 82; RESP 14; TEMP 36.4; O2SAT 98; BMI 28.8
[2025-03-15 17:53] VITALS: BP 0/0; PULSE 0; RESP 0; TEMP -17.7; TEMP 0; O2SAT 0
--- NOTE | 2025-03-15 17:54 | PC.NURSE ---
Registration called back here and said that patient walked up to window and stated she got a call about her horse being down, And she had to leave to go get her horse up but she will be back later.
== END 2025-03-15 17:55 | disposition left against medical advice (07) ==
LOC: ER 17:33
PROVIDERS: Emergency Provider Emergency Medicine; PCP Nurse Practitioner Family
DX: Z53.21 Procedure and treatment not carried out due to patient leaving prior to being seen by health care provider (principal)
CPT/HCPCS: 99211